=== PATIENT | female | born 1975 | race Caucasian/White ===

== ENCOUNTER 2022-01-22 07:43 | Emergency (ER) | payer OTHER ==
[2022-01-22 08:22] LABS: HEMOGLOBIN 10.2 gm/dl (12.3-15.3); RED BLOOD COUNT 4.76 M/UL (4.00-5.10); WHITE BLOOD COUNT 5.9 K/UL (4.5-11.0)
[2022-01-22 08:56] LABS: BUN/CREATININE RATIO 14 (0-10)
[2022-01-22] MEDS ORDERED: HYDROCODON-ACE1 EAC4 PO (11:43)
== END 2022-01-22 13:58 | disposition home or self-care (01) ==
LOC: ER1 07:43
PROVIDERS: Emergency Medicine
DX: N13.2 Hydronephrosis with renal and ureteral calculous obstruction (principal); E83.52 Hypercalcemia; N85.8 Other specified noninflammatory disorders of uterus
CPT/HCPCS: 80053; 81001; 83735; 84703; 85025; 96374; 96375; 99284; J1885; J2270; J2405